=== PATIENT | female | born 1975 | race Caucasian/White ===

== ENCOUNTER 2016-09-01 05:20 | Emergency (ER) | payer OTHER, MEDICAID ==
[~2016-09-01 05:20] MED LIST: NOMED
[2016-09-01 05:23] VITALS: BP 102/70; PULSE 70; RESP 16; O2SAT 97
--- NOTE | 2016-09-01 05:57 | ED.REPORT ---
HPI-Extremity Problem Upper Date of Service Sep 01, 2016 ED Provider: Lili Loo MD A right handed 41 year old female with a history of Degenerative disc disease in back presents to the ED complaining of right hand pain onset a couple of weeks ago. Pain onset with 1st knuckle and spread to 2nd knuckle and into thumb. Patient reports that her noticed that she hit her right hand on the wall above her head while sleeping within the last few weeks, but did not hit it hard enough to wake up. Associated symptoms include swelling in palm of the hand and occasional night time paresthesia. Symptoms are relieved by not using her hand. She has been taking 1600mg ibuprofen per day, 800mg BID since onset, that seems to relieve pain.She visited yesterday. Nursing Notes Stated Complaint: RIGHT HAND PAIN Chief Complaint: Extremity Trauma Nursing Notes Reviewed: Yes Allergies: Coded Allergies: codeine (Verified Allergy, Intermediate, hives, 10/07/15) doxycycline (Verified Allergy, Unknown, Rash, 09/01/16) Miscellaneous Medications No Historical Medication (No Historical Medication) Ea General Time Seen by MD: 05:55 Chief Complaint Hand injury right Hx Obtained From: Patient Arrived By: Walk-in Onset Occurred: More than a week ago... (couple weeks ago) Symptom Duration: Since onset Severity: Current: Moderate Severity: Maximum: Moderate Recent Healthcare: Recent doctor visit (visited yesterday) Similar Sx Previous: No Past Medical History Past Medical History Notes: PCP Dr. 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 Occasional night time paresthesia. Denies Hx arthiris. Reports: Asthma Past Surgical History Right Lung surgery for a nodule in the middle lobe - not cancerous. September 2013. 4 right knee surgeries since 1997. Right 5th digit plate. Reports: Hysterectomy (2002) Smoking History Current Every Day Smoker Social History No doctor appointment scheduled till November. Alcohol Use: Denies alcohol use Drug Use: Vicodin, Percocet Ambulatory Status Independent Review of Systems Review of Systems Note: occasional night time paresthesia. Denies skin lesions Denies dry skin spots Constitutional: Denies: Chills, Fever Musculoskeletal: Reports: Extremity pain (Right hand), Extremity swelling ( Right hand) Skin: Denies Rash Complete sys rev & neg: except as marked. Respiratory: Denies: Non-productive cough Cardiovascular: Denies: Chest pain Physical Exam Initial Vital Signs Vital Signs (First) Date Time Temp Pulse Resp B/P Pulse Ox O2 Delivery O2 Flow Rate FiO2 09/01/16 05:23 37.1 70 16 102/70 97 Room Air Initial VS: Reviewed General/Constitutional: Awake, Alert Respiratory / Chest: Atraumatic, Breath sounds NL, Breath sounds = bilat, No respiratory distress, No rales, No rhonchi, No wheezing Cardiovascular: Heart rate NL, Regular rhythm, Heart sounds NL, No gallop, No murmurs, No rubs Right hand has active synovitis in first and second knuckles, and at base of thumb. Skin: Atraumatic, Color NL, Warm, Dry Neurologic: Oriented X3, Speech NL Head / Eyes: Atraumatic, Normocephalic, PERRL, EOMI Abdomen: No guarding, No rebound Lower Extremity / Pelvis / MS: No swelling, No edema Interpretation & Diagnostics Lab Results Interpretation Result Diagram: 09/01/16 0631 Test 09/01/16 06:31 White Blood Count 5.3th/mm3 (3.8-10.1) Red Blood Count 4.29mil/mm3 (3.90-5.20) Hemoglobin 13.2g/dL (12.0-15.6) Hematocrit 40.0% (35.0-46.0) Mean Corpuscular Volume 93.2fL (81-100) Mean Corpuscular Hemoglobin 30.8pg (27.0-35.0) Mean Corpuscular Hemoglobin Concent 33.0% (32.0-37.0) Red Cell Distribution Width 12.8% (12.3-15.4) Platelet Count 317bil/L (150-400) Neutrophils (%) (Auto) 34.3% (40-74) Lymphocytes (%) (Auto) 54.3% (14-46) Monocytes (%) (Auto) 9.5% (4-12) Eosinophils (%) (Auto) 1.5% (0-5) Basophils (%) (Auto) 0.4% (0-3) Re-Eval/Medical Decision Source of Hx: Old records Re-Evaluation/Progress #1: Patient Status: Condition improved Re-Evaluation/Progress Note: Explained that hand XRay does not show any erosions or fractures. Explained test results and plan for discharge. Patient understands and agrees with the plan. All questions addressed. Re-Evaluation/Progress #2: Time of Eval: 06:33 Patient Status: Condition improved Re-Evaluation/Progress Note: Rechecked patient and applied splint. Counseled Regarding: Diagnosis, Lab results, Need for follow-up, When/why to return to ED Discharge & Departure Impression: Primary Impression: Arthritis of right hand Disposition: Home Discharge Condition All VS Reviewed: Yes Condition: Improved Additional Instructions: Your hand XRay does not show any erosions or fractures. It appears like arthritis. I will give you a splint to ues to protect the joints. Blood results will be sent to Dr. Zuluaga. Call Dr. Zuluaga, and tell her that you need to be seen for your hand. Blood results will be available to Dr. Zuluaga. Please call to schedule a follow up with Dr Zuluaga or one of her partners. The splint is to protect the joint and for comfort only. Please take the splint off periodically to make sure you use your fingers. DO try the spint an night for the next night and see if that helps. Good luck! Referrals: Tomeka Zuluaga MD (PCP) [place]ov[place]on Attestation Portions of this note were transcribed by Mickey Lee. I, Dr. Loo personally performed the history, physical exam and medical decision-making; I reviewed and confirmed the accuracy of the information in the transcribed note. Signed by: Deandre Torres, 09/01/2016, 0707. copies to: Tomeka Zuluaga MD, Shawna L MD Sep 01, 2016 05:57 Mickey Lee Sep 01, 2016 06:05
[2016-09-01 06:47] LABS: BASOPHILS % (AUTO) 0.4 % (0-3); EOSINOPHILS % (AUTO) 1.5 % (0-5); MONOCYTES % (AUTO) 9.5 % (4-12); Mean Corpuscular Hemoglobin 30.8 pg (27.0-35.0); Mean Corpuscular Volume 93.2 fL (81-100); NEUTROPHILS % (AUTO) 34.3 % (40-74); Platelet Count 317 bil/L (150-400)
[2016-09-01 07:03] VITALS: BP 122/64; PULSE 82; RESP 14; O2SAT 97
[2016-09-01 07:07] LABS: ERYTHROCYTE SEDIMENTATION RATE 7 mm/hr (0-32)
--- NOTE | 2016-09-01 09:40 | DRSVH ---
PROCEDURE: X-RAY RIGHT HAND, MINIMUM THREE VIEWS ([id number]) INDICATIONS: POST TRAUMA. TECHNIQUE: Three views of the hand acquired. COMPARISON: [facility], , HAND 3V RIGHT, 07/06/2014, 16:50. FINDINGS: Bones: No fractures or dislocations. No suspicious bony lesions. Patient is status post fifth meta carpal ORIF. Hardware is intact. Soft tissues: No suspicious soft tissue calcifications. IMPRESSION: 1. Stable postsurgical changes and no definite acute radiographic finding. If pain persists, conside r repeat examination in 10-14 days to exclude occult fracture. Dictated by: Casper Montoya RRA Interpreted: Merlyn Jasso MD on 09/01/2016 at 8:53 Transcribed by: LEONILA on 09/01/2016 at 12:39 Approved by: Merlyn Jasso MD, PhD on 09/01/2016 at 16:43
== END 2016-09-01 06:30 | disposition home or self-care (01) ==
LOC: SED 05:20
DX: M19.041 Primary osteoarthritis, right hand (principal); J45.909 Unspecified asthma, uncomplicated; F17.200 Nicotine dependence, unspecified, uncomplicated; W22.8XXA Striking against or struck by other objects, initial encounter; Y93.84 Activity, sleeping; Y92.9 Unspecified place or not applicable; Y99.8 Other external cause status; M51.9 Unspecified thoracic, thoracolumbar and lumbosacral intervertebral disc disorder; Z88.1 Allergy status to other antibiotic agents; Z88.5 Allergy status to narcotic agent

== ENCOUNTER 2016-09-07 11:29 | Emergency (ER) | payer OTHER, MEDICAID ==
[~2016-09-07] VITALS: Ht 165.1 cm; Wt 72.7 kg
[2016-09-07 11:32] VITALS: BP 129/79; PULSE 99; RESP 15; O2SAT 98
[2016-09-07] MEDS ORDERED: predniSONE 20 mg Tablet PO ONE (11:45)
--- NOTE | 2016-09-07 11:47 | ED.REPORT ---
HPI-Back Pain 40 and Over Date of Service Sep 07, 2016 ED Provider: Jason Mojica PA-C Susan is a 41-year-old female with history of degenerative disc disease who presents with lower back pain. She reports severe pain in her lower back and left hip first noticed when she awoke this morning. She states this is not feel like her typical DJD flare. She has sensation that her hip is grinding. Complains of numbness and tingling in her legs. She recognizes no antecedent event. Patient discussed this with her primary care provider who asked her to present to the emergency department. Nursing Notes Stated Complaint: BACK/ LEFT HIP PAIN Chief Complaint: Back Pain or Injury Nursing Notes Reviewed: Yes Allergies: Coded Allergies: codeine (Verified Allergy, Intermediate, hives, 09/07/16) doxycycline (Verified Allergy, Unknown, Rash, 09/07/16) Scheduled Prednisone (PredniSONE) 20 Mg Tablet 40 MG PO DAILY Miscellaneous Medications No Historical Medication (No Historical Medication) Ea General Time Seen by MD: 11:36 Chief Complaint Back pain Sudden in Onset?: No Past Medical History Past Medical History Notes: PCP Dr. 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 Occasional night time paresthesia. Denies Hx arthiris. Reports: Asthma Past Surgical History Right Lung surgery for a nodule in the middle lobe - not cancerous. September 2013. 4 right knee surgeries since 1997. Right 5th digit plate. Reports: Hysterectomy Smoking History Current Every Day Smoker Social History No doctor appointment scheduled till November. Alcohol Use: Denies alcohol use Drug Use: Vicodin, Percocet Ambulatory Status Independent Physical Exam Initial Vital Signs Vital Signs (First) Date Time Temp Pulse Resp B/P Pulse Ox O2 Delivery O2 Flow Rate FiO2 09/07/16 11:32 36.2 99 15 129/79 98 Room Air Interpretation & Diagnostics Lab Results Interpretation Test 09/07/16 12:00 Hold Urine Received (Received) Re-Eval/Medical Decision Med Decision/Clinical Course 41-year-old female with back pain that is without red flag symptoms for acute disc herniation, cauda equina, infection, hematoma, trauma, pyelonephritis, nephrolithiasis, AAA, cancer. I believe this is musculoskeletal back pain. She describes hip pain with a sensation of crepitus. Little concern for acute trauma or septic joint. Discussed her case with her primary care provider, who feels that arthritis is a possibility. She advises the patient to continue her usual pain contract medication, prednisone burst, rest for the weekend and follow up early next week if necessary. I discussed this with the patient who verbalizes understanding of and consent to the plan. Provided emergency return precautions. Consultation : Referral / Consult Name: Tomeka Zuluaga MD Consulted With: Primary care physician Call Returned at: 14:10 Note: Stress the case with Dr. Zuluaga. She advises continuing use of her current pain medications up to maximum doses, rest through the weekend. Follow up next week if necessary. Discharge & Departure Impression: Primary Impression: Low back pain Chronicity: acute Back pain laterality: left Sciatica presence: without sciatica Qualified Code: M54.5 - Low back pain Disposition: Home Discharge Condition All VS Reviewed: Yes Condition: Stable Patient Instructions: Acute Low Back Pain (ED) Additional Instructions: Evaluation in the emergency department for lower back pain. History and physical are reassuring for emergent neurological condition such as epidural abscess or cauda equina syndrome. History does not suggest that this is likely to be a spinal fracture. Your neurological examination is reassuring, indicating there is no damage to the nerves in your back. I see no indication to perform imaging tests at this time. Treatment is largely symptomatic. Rest is important, especially for the next couple of days, but avoid total bed rest. Reasonable activity as tolerated is the best. Primary care provider recommends continuing use of your usual pain medications. you can take 1-2 of either your hydrocodone-acetaminophen or oxycodone- acetaminophen every 4-6 hours as needed for pain I will write a prescription for prednisone 40 mg to be taken once a day for the next 4 days. You received your first dose here in the emergency department. Follow-up with your primary care provider in the next week or two to be sure your recovery is progressing as expected. Return the emergency department for new or worsening symptoms such as loss of bowel/bladder control, numbness between your legs, new weakness/numbness or high fever. Referrals: Tomeka Zuluaga MD (PCP) EDSupervising Provider for APC: Justin Yeh MD Attending Statement Case was discussed. Records reviewed. Vitaals normal. copies to: Tomeka Zuluaga MD, Seth PA-C Sep 07, 2016 11:47 Justin Yeh MD Sep 07, 2016 13:45
[2016-09-07] MEDS ORDERED: PRE20 PO (14:28)
[2016-09-07 14:55] VITALS: BP 140/79; PULSE 76; RESP 15; O2SAT 94
== END 2016-09-07 14:56 | disposition home or self-care (01) ==
LOC: SED 11:29
DX: M54.5 Low back pain (principal); R20.2 Paresthesia of skin; J45.909 Unspecified asthma, uncomplicated; M51.35 Other intervertebral disc degeneration, thoracolumbar region; F17.200 Nicotine dependence, unspecified, uncomplicated; Z88.5 Allergy status to narcotic agent; Z88.1 Allergy status to other antibiotic agents
CPT/HCPCS: 81025; 96372; 99284; J1885

== ENCOUNTER 2017-01-14 19:40 | Emergency (ER) | payer OTHER, MEDICAID ==
[~2017-01-14] VITALS: Ht 165.1 cm; Wt 68.2 kg
[~2017-01-14 19:40] MED LIST changes: +PRE20 PO
[2017-01-14 19:58] VITALS: BP 101/66; PULSE 76; RESP 16; O2SAT 96
--- NOTE | 2017-01-14 20:04 | ED.REPORT ---
HPI-Dyspnea / Wheezing Date of Service Jan 14, 2017 ED Provider: Herman Mcgarry DO Pt is a 31 year old female with a history of asthma and lung surgery who presents to the ED complaining of worsening sharp back pain onset 3 weeks ago. She c/o associated pleuritic pain and nausea. She denies rash, shingles, and any other symptoms. Pt reports that her pain is exacerbated with breathing. She states that her current pain is similar to when she previously had a nodule in the middle lobe of her right lung. Per pt, her pain does not hurt where her surgical scar is. The pt is currently on hormones, but she denies taking control. Nursing Notes Stated Complaint: BACK PAIN, PAINFUL BREATHING Chief Complaint: Respiratory Complaints Nursing Notes Reviewed: Yes Allergies: Coded Allergies: codeine (Verified Allergy, Intermediate, hives, 09/07/16) doxycycline (Verified Allergy, Unknown, Rash, 09/07/16) Scheduled Prednisone (PredniSONE) 20 Mg Tablet 40 MG PO DAILY Miscellaneous Medications No Historical Medication (No Historical Medication) Ea General Time Seen by MD: 20:04 Chief Complaint Other (back pain) Hx Obtained From: Patient Arrived By: Walk-in Sudden in Onset?: No Symptom Duration: Since onset Location: : Back Quality: Painful Radiation: : Does not radiate Severity: Current: Moderate Severity: Maximum: Moderate Recent Healthcare: No recent doctor visit, No recent hospitalization Similar Sx Previous: Yes Past Medical History Past Medical History Notes: PCP Dr. 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 Occasional night time paresthesia. Denies Hx arthiris. Reports: Asthma Past Surgical History Right Lung surgery for a nodule in the middle lobe - not cancerous. September 2013. 4 right knee surgeries since 1997. Right 5th digit plate. Reports: Hysterectomy Smoking History Current Every Day Smoker Social History No doctor appointment scheduled till November. Alcohol Use: Denies alcohol use Drug Use: Vicodin, Percocet Other Social History: Good social support Ambulatory Status Independent Review of Systems + pleuritic pain Cardiovascular: Reports: Dyspnea on exertion Musculoskeletal: Reports: Back pain Skin: Denies Rash Complete sys rev & neg: except as marked. GI: Reports: Nausea Physical Exam Initial Vital Signs Vital Signs (First) Date Time Temp Pulse Resp B/P Pulse Ox O2 Delivery O2 Flow Rate FiO2 01/14/17 19:58 37.6 76 16 101/66 96 Room Air Initial VS: Reviewed Head / Eyes: Atraumatic, Normocephalic Abdomen / GI: Soft, Non-tender Extremities: Vascular intact, Neuro intact Skin: Warm, Dry, No cyanosis Neurologic: Alert, Oriented, Nonfocal Psychiatric: Mood/affect normal, Behavior normal General/Constitutional: Awake, Alert Neck: Atraumatic, Full range of motion Respiratory / Chest: Atraumatic, Breath sounds NL, Breath sounds = bilat Cardiovascular: Heart rate NL, Regular rhythm, Heart sounds NL Interpretation & Diagnostics ANGIOGRAPHY CT: IMPRESSION: 1. No evidence of pulmonary embolism. 2. Moderate to severe centrilobular emphysematous changes in the lungs. 3. Mildly enlarged mediastinal lymph nodes are nonspecific and may be reactive. Recommend attention on followup 4. Small right lower lobe pulmonary nodules measuring up to 3 mm. If clinically indicated, a followup CT may be performed in 6 months to demonstrate stability or resolution. 5. Mild reflux of contrast into the hepatic veins suggesting elevated right heart filling pressures. Dictated by: Josue Brown M.D. on 01/14/2017 at 21:41 Lab Results Interpretation Result Diagram: 01/14/17203001/14/172030 Test 01/14/17 20:31 White Blood Count 7.6th/mm3 (3.8-10.1) Red Blood Count 4.53mil/mm3 (3.90-5.20) Hemoglobin 13.7g/dL (12.0-15.6) Hematocrit 41.1% (35.0-46.0) Mean Corpuscular Volume 90.7fL (81-100) Mean Corpuscular Hemoglobin 30.2pg (27.0-35.0) Mean Corpuscular Hemoglobin Concent 33.3% (32.0-37.0) Red Cell Distribution Width 13.6% (12.3-15.4) Platelet Count 337bil/L (150-400) Neutrophils (%) (Auto) 38.1% (40-74) Lymphocytes (%) (Auto) 49.4% (14-46) Monocytes (%) (Auto) 10.1% (4-12) Eosinophils (%) (Auto) 2.1% (0-5) Basophils (%) (Auto) 0.3% (0-3) Sodium Level 140mEq/L (134-144) Potassium Level 3.9mEq/L (3.5-5.2) Chloride Level 105mEq/L (97-108) Carbon Dioxide Level 19mmol/L (18-29) Blood Urea Nitrogen 11mg/dL (6-24) Creatinine 0.65mg/dL (0.57-1.00) Estimat Glomerular Filtration Rate 144mL/min (>59) Glucose Level 106mg/dL (60-99) Calcium Level 9.0mg/dL (8.5-10.1) Magnesium Level 2.1mg/dL (1.6-2.6) Total Bilirubin 0.2mg/dL (0.0-1.2) Aspartate Amino Transf (AST/SGOT) 13U/L (0-50) Alanine Aminotransferase (ALT/SGPT) 7U/L (0-32) Alkaline Phosphatase 69U/L (25-150) Troponin T 0.010ug/L (0.0-0.011) Total Protein 7.1g/dL (6.4-8.4) Albumin 4.1g/dL (3.4-5.0) Hold Gavin Top Tube Received (Received) ECG Interpretation ECG Interpretation: Sinus rhythm with a rate of 69 Lack of marked abnormality Time: 20:46 Interpreted by: ED physician Normal ECG Interpretation: Normal ECG w/ rate of... X-Ray Chest Interpretation Chest Xray Interpretation: IMPRESSION: 1. No acute cardiopulmonary disease. Dictated by: Josue Brown M.D. on 01/14/2017 at 20:44 View: AP & lat Interpretation / Wet Read by: Interpret - Radiologist Re-Eval/Medical Decision Source of Hx: Old records Re-Evaluation/Progress : Time of Eval: 22:24 Re-Evaluation/Progress Note: Pt rechecked. Informed pt of plan for discharge. Pt understands and agrees with plan for discharge. F/U instructions and RTER warnings given. All questions addressed. Counseled Regarding: Diagnosis, Lab results, Need for follow-up, When/why to return to ED Discharge & Departure Impression: Primary Impression: Pleuritic chest pain Additional Impression: Emphysema of lung Emphysema type: centrilobular Qualified Code: J43.2 - Centrilobular emphysema Disposition: Home Discharge Condition All VS Reviewed: Yes Condition: Stable Patient Instructions: Chest Pain (ED), Emphysema (ED) Additional Instructions: Your EKG and cardiac enzymes were normal. The laboratory work is reassuring. The CAT scan of the chest does not show a blood clot or signs of pneumonia. You do have severe emphysema. You do have some enlarged lymph nodes which may be reactive. You also have a couple new right-sided pulmonary nodules that should have follow-up imaging. For the pain I would like you to take Naprosyn twice daily. For breakthrough pain you may take 1-2 Percocet every [address] or drink alcohol or consume acetaminophen while taking the Percocet. If you develop a fever, cough with sputum or any worsening symptoms such as symptoms of bronchitis, return to the Emergency department. Completed the Z-Cordell as prescribed. Set up a follow-up with you primary care physician next week. Return if any problems or any worsening symptoms. Referrals: Tomeka Zuluaga MD (PCP) Deandre Attestation Portions of this note were transcribed by Mini Manuel. I, Dr. Mcgarry personally performed the history, physical exam and medical decision-making; I reviewed and confirmed the accuracy of the information in the transcribed note. Signed by : Deandre Burns, 01/14/17. copies to: Tomeka Zuluaga MD, Todd P DO Jan 14, 2017 20:04 Mini Nolan Jan 14, 2017 20:43
[2017-01-14 20:39] LABS: BASOPHILS % (AUTO) 0.3 % (0-3); EOSINOPHILS % (AUTO) 2.1 % (0-5); MONOCYTES % (AUTO) 10.1 % (4-12); Mean Corpuscular Hemoglobin 30.2 pg (27.0-35.0); Mean Corpuscular Volume 90.7 fL (81-100); NEUTROPHILS % (AUTO) 38.1 % (40-74); Platelet Count 337 bil/L (150-400)
--- NOTE | 2017-01-14 20:46 | DRSVH ---
PROCEDURE: X-RAY CHEST, TWO VIEWS ([id number]) INDICATIONS: CP, back pain TECHNIQUE: 2 views of the chest were acquired. COMPARISON: None. FINDINGS: Surgical changes and devices: None. Lungs and pleura: No pleural effusions or pneumothorax. Lungs are clear. Mediastinum: Mediastinal contours are normal. Heart size is normal. Bones and chest wall: No suspicious bony abnormalities. Soft tissues appear unremarkable. IMPRESSION: 1. No acute cardiopulmonary disease. Dictated by: Josue Brown M.D. on 01/14/2017 at 20:44 Approved by: Josue Brown M.D. on 01/14/2017 at 20:44
[2017-01-14] MEDS ORDERED: HYDROmorphone 0.5 mg/0.5 mL iSecure Syringe IVPUSH PRN (20:50)
[2017-01-14 20:58] LABS: TROPONIN T 0.01 ug/L (0.0-0.011)
[2017-01-14 21:08] LABS: Magnesium 2.1 mg/dL (1.6-2.6)
--- NOTE | 2017-01-14 21:52 | DRSVH ---
PROCEDURE: CT ANGIO CHEST PULMONARY EMBOLISM ([id number]) INDICATIONS: cp and shortness of breath TECHNIQUE: After the administration of intravenous contrast, 2 mm thick sections acquired from the pulmonary api juanis to the posterior costophrenic angles. 3-dimensional maximum intensity projection (MIP) coronal a nd sagittal reformats were then acquired through the thorax. For radiation dose reduction, the follo wing was used: automated exposure control, adjustment of mA and/or kV according to patient size. COMPARISON: None. FINDINGS: Image quality: Excellent. Pulmonary arteries: Pulmonary arteries are normal in size, and demonstrate no intraluminal filling d efects to suggest central pulmonary embolism. Lungs and pleura: There are moderate severe centrilobular emphysematous changes. 3 small pulmonary nodules are demonstrated within the right lower lobe measuring up to approximately 3 mm. No pleural effusions or pneumothorax. Central and peripheral airways are patent. Mediastinum: Heart size is normal, without pericardial effusion. Thoracic aorta is normal in calibe r and enhancement. There are a few mildly enlarged mediastinal and right hilar lymph nodes with an A P window node measuring up to 1.2 cm in short axis. Esophagus is normal in caliber, without hiatal he rnia. Bones and chest wall: No suspicious bony lesions. Ribs and thoracic spine appear intact throughout. No axillary or supraclavicular adenopathy. Abdomen: Visualized upper abdomen demonstrates reflux of contrast into the hepatic veins suggesting mild elevated right heart pressures. There is a rounded calcification within the visualized spleen w hich may represent a calcified granuloma. IMPRESSION: 1. No evidence of pulmonary embolism. 2. Moderate to severe centrilobular emphysematous changes in the lungs. 3. Mildly enlarged mediastinal lymph nodes are nonspecific and may be reactive. Recommend attention on followup 4. Small right lower lobe pulmonary nodules measuring up to 3 mm. If clinically indicated, a follow up CT may be performed in 6 months to demonstrate stability or resolution. 5. Mild reflux of contrast into the hepatic veins suggesting elevated right heart filling pressures. Dictated by: Josue Brown M.D. on 01/14/2017 at 21:41 Approved by: Josue Brown M.D. on 01/14/2017 at 21:50
[2017-01-14 23:29] VITALS: BP 98/69; PULSE 60; RESP 22; O2SAT 99
== END 2017-01-14 23:30 | disposition home or self-care (01) ==
LOC: SED 19:40
DX: R07.81 Pleurodynia (principal); J43.2 Centrilobular emphysema; J45.909 Unspecified asthma, uncomplicated; F17.200 Nicotine dependence, unspecified, uncomplicated; Z88.5 Allergy status to narcotic agent; Z88.1 Allergy status to other antibiotic agents
CPT/HCPCS: 36415; 71020; 71275; 80053; 83735; 84484; 85025; 93005; 96374; 96375; 99285; J1170; J1885; Q9967

== ENCOUNTER 2017-01-20 16:10 | Emergency (ER) | payer OTHER, MEDICAID ==
[~2017-01-20] VITALS: Ht 165.1 cm; Wt 150.0 kg
[2017-01-20 16:22] VITALS: BP 131/85; PULSE 66; RESP 20; O2SAT 99
[2017-01-20 17:16] LABS: BASOPHILS % (AUTO) 0.4 % (0-3); EOSINOPHILS % (AUTO) 1.1 % (0-5); MONOCYTES % (AUTO) 6.9 % (4-12); Mean Corpuscular Hemoglobin 30.8 pg (27.0-35.0); Mean Corpuscular Volume 90.2 fL (81-100); NEUTROPHILS % (AUTO) 55.8 % (40-74); Platelet Count 377 bil/L (150-400)
--- NOTE | 2017-01-20 17:28 | DRSVH ---
PROCEDURE: X-RAY CHEST ONE VIEW, PORTABLE ([id number]) INDICATIONS: 41 year-old female with shortness of breath. TECHNIQUE: One view of the chest was acquired. COMPARISON: [facility], CR, XR CHEST 2VW, 01/14/2017, 20:29. [facility], CR , XR CHEST 2VW, 01/31/2016, 14:38. [facility], CR, CHEST 1VW (PORTABLE), 10/06/2014, 0:20 . FINDINGS: Surgical changes and devices: Right lower lung staple line is again noted. Lungs and pleura: No pleural effusions or pneumothorax. Lungs are clear. Mediastinum: Mediastinal contours appear normal. Heart size is normal. Bones and chest wall: No suspicious bony lesions. Overlying soft tissues appear unremarkable. IMPRESSION: No acute cardiopulmonary disease. Dictated by: Juan Pablo Neville M.D. on 01/20/2017 at 17:25 Approved by: Juan Pablo Neville M.D. on 01/20/2017 at 17:26
[2017-01-20 17:52] VITALS: BP 115/75; PULSE 72; RESP 14; O2SAT 98
[2017-01-20 18:07] LABS: TROPONIN T < 0.010 ug/L (0.0-0.011)
--- NOTE | 2017-01-20 18:08 | ED.REPORT ---
HPI-General Illness Date of Service Jan 20, 2017 ED Provider: Lenny Enciso DO Pt is a 41 year old female with a history of emphysema and a pulmonary nodule s/ p surgery who presents to the ED complaining of stabbing and worsening upper back pain onset 4 weeks ago that has worsened over the past week since being seen in the ER here. She c/o worsened pain with deep breathing and insomnia secondary to the pain. She denies SOB, lower extremity swelling, chest pain, and abdominal pain. Pt rates her pain as a 9/10 at its worst, but she states her pain is currently a 6/10. She denies a history of blood clots in her lung. The pt is a current smoker. She has a follow up appointment with her PCP on 01/22, and also her medical social worker. The pain is at the midline of her back near the bra line and radiates out to both sides. There has been no skin rashes noted. She presented to the ED on 01/14/17 with similar symptoms and had a CT scan demonstrating no pulmonary embolus, mildly enlarged mediastinal lymph nodes of undetermined significance, and small right lower lobe pulmonary nodules measuring up to 3 mm. She was diagnosed with pleuritic chest pain and emphysema of lung and discharged with a plan for follow-up. The pt was provided Z-pack, Percocet, and naproxen for her pain with minimal relief. She took the entire dose of the Z-Cordell, last dose was one day ago. This did not help her pain Nursing Notes Stated Complaint: LUNG AND BACK PAIN, HARD TO BREATH Chief Complaint: Respiratory Complaints Nursing Notes Reviewed: Yes Allergies: Coded Allergies: codeine (Verified Allergy, Intermediate, hives, 09/07/16) doxycycline (Verified Allergy, Unknown, Rash, 09/07/16) Scheduled Prednisone (PredniSONE) 20 Mg Tablet 40 MG PO DAILY Scheduled PRN Diclofenac Potassium (Diclofenac Potassium) 50 Mg Tablet 50 MG PO TID PRN PRN For Pain Miscellaneous Medications No Historical Medication (No Historical Medication) Ea General Time Seen by MD: 18:03 Chief Complaint Back pain Hx Obtained From: Patient Arrived By: Walk-in Sudden in Onset?: No Onset Occurred: 1 week ago Symptom Duration: Since onset Location: : Back Quality: Painful Radiation: : Does not radiate Severity: Current: Moderate Severity: Maximum: Moderate Recent Healthcare: Recent doctor visit Similar Sx Previous: Yes Past Medical History Past Medical History Notes: PCP Dr. 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 Occasional night time paresthesia. Denies Hx arthiris. Reports: Asthma Past Surgical History Right Lung surgery for a nodule in the middle lobe - not cancerous. September 2013. 4 right knee surgeries since 1997. Right 5th digit plate. Reports: Hysterectomy Smoking History Current Every Day Smoker Social History Alcohol Use: Denies alcohol use Drug Use: Vicodin, Percocet Other Social History: Good social support Ambulatory Status Independent Review of Systems Full Review of Systems Respiratory: Denies: Shortness of breath Cardiovascular: Denies: Chest pain GI: Denies: Abdominal pain Musculoskeletal: Reports: Back pain, Denies: Extremity swelling Complete sys rev & neg: except as marked. Physical Exam Vital Signs Vital Signs Date Time Temp Pulse Resp B/P Pulse Ox O2 Delivery O2 Flow Rate FiO2 01/20/17 20:54 36.7 68 17 107/73 93 Room Air 01/20/17 20:35 68 17 97/57 93 Room Air 01/20/17 19:00 72 21 107/82 97 Room Air 01/20/17 17:52 72 14 115/75 98 Room Air 01/20/17 16:22 36.7 66 20 131/85 99 Room Air Initial VS: Reviewed Head / Eyes: Atraumatic, Normocephalic Neck: Supple, Full range of motion Abdomen / GI: Soft, Non-tender Extremities: Vascular intact, Neuro intact Skin: Warm, Dry, No cyanosis Neurologic: Alert, Oriented, Nonfocal Psychiatric: Mood/affect normal, Behavior normal General/Constitutional: Awake, Alert RESPIRATORY: No increased work of breathing. Bibasilar inspiratory rales. Cardiovascular: Heart rate NL, Regular rhythm, Heart sounds NL, No murmurs Back: Full range of motion No CVA tenderness to percussion. Skin: No rash, Warm, Dry No abnormalities seen. No bruising. Interpretation & Diagnostics Lab Results Interpretation Result Diagram: 01/20/17 1700 01/20/17 1700 Test 01/20/17 17:00 01/20/17 18:00 White Blood Count 8.4th/mm3 (3.8-10.1) Red Blood Count 4.68mil/mm3 (3.90-5.20) Hemoglobin 14.4g/dL (12.0-15.6) Hematocrit 42.2% (35.0-46.0) Mean Corpuscular Volume 90.2fL (81-100) Mean Corpuscular Hemoglobin 30.8pg (27.0-35.0) Mean Corpuscular Hemoglobin Concent 34.1% (32.0-37.0) Red Cell Distribution Width 13.4% (12.3-15.4) Platelet Count 377bil/L (150-400) Neutrophils (%) (Auto) 55.8% (40-74) Lymphocytes (%) (Auto) 35.8% (14-46) Monocytes (%) (Auto) 6.9% (4-12) Eosinophils (%) (Auto) 1.1% (0-5) Basophils (%) (Auto) 0.4% (0-3) Sodium Level 139mEq/L (134-144) Potassium Level 3.7mEq/L (3.5-5.2) Chloride Level 102mEq/L (97-108) Carbon Dioxide Level 21mmol/L (18-29) Blood Urea Nitrogen 9mg/dL (6-24) Creatinine 0.72mg/dL (0.57-1.00) Estimat Glomerular Filtration Rate 128mL/min (>59) Glucose Level 90mg/dL (60-99) Calcium Level 9.4mg/dL (8.5-10.1) Total Bilirubin 0.5mg/dL (0.0-1.2) Aspartate Amino Transf (AST/SGOT) 16U/L (0-50) Alanine Aminotransferase (ALT/SGPT) 9U/L (0-32) Alkaline Phosphatase 65U/L (25-150) Troponin T < 0.010ug/L (0.0-0.011) Pro-B-Type Natriuretic Peptide 247.6pg/mL (0-130) Total Protein 7.4g/dL (6.4-8.4) Albumin 4.3g/dL (3.4-5.0) Hold Gavin Top Tube Received (Received) Urine Color Straw (YELLOW) Urine Appearance Clear (CLEAR,HAZY) Urine pH 6.0 (5.0-8.0) Urine Specific [place] 1.010 (1.003-1.035) Urine Protein Negativemg/dL (NEG,TRACE) Urine Glucose (UA) Negativemg/dL (NEGATIVE) Urine Ketones Negativemg/dL (NEGATIVE) Urine Occult Blood Trace (NEGATIVE) Urine Nitrite Negative (NEGATIVE) Urine Bilirubin Negative (NEGATIVE) Urine Urobilinogen Normalmg/dL (NORMAL) Urine Leukocyte Esterase Negative (NEGATIVE) Urine RBC 0-2/hpf (0-2) Urine WBC 0-5/hpf (0-5) Urine Epithelial Cells None/hpf (NONE-MOD) Urine Crystals None seen (NONE SEEN) Urine Bacteria Few/hpf (NONE-FEW) Urine Hyaline Casts None/lpf (NONE) Urine Granular Casts None seen (NONE SEEN) Urine Waxy Casts None seen (NONE SEEN) Urine Red Blood Cell Casts None seen (NONE SEEN) Urine White Blood Cell Casts None seen (NONE SEEN) Urine Mucus None seen (None Seen) Urine Trichomonas None seen (NONE SEEN) Urine Yeast None (NONE SEEN) Urinalysis Comment None Urine Culture Reflexed Not indicated ECG Interpretation ECG Interpretation: Sinus rhythm with a rate of 63 Probable left atrial enlargement Time: 16:57 Interpreted by: ED physician X-Ray Chest Interpretation Chest Xray Interpretation: IMPRESSION: No acute cardiopulmonary disease. Dictated by: Juan Pablo Neville M.D. on 01/20/2017 at 17:25 View: Portable, 1 view Interpretation / Wet Read by: Interpret - Radiologist Re-Eval/Medical Decision Med Decision/Clinical Course I had a long discussion with the patient regarding her current symptoms and our role for further testing today. With the negative CT for pulmonary embolus one week ago and ongoing pain for 1 month I do not think a pulmonary embolus is likely and a scan is not necessary today. The enlarged lymph nodes and pulmonary nodules are not likely source of pain. There is no spinal pathology noted in the recent CT scan. There is no evidence of shingles, and her pain is bilateral. Her lab work does not indicate infectious etiology, her chest x-ray does not show pneumonia, and she just finished a full course of azithromycin. I suspect she has pleurisy. I gave her a stronger anti-inflammatory, diclofenac and also a small amount of Percocet for breakthrough pain. She has follow-up scheduled with her medical social worker and PCP within the week. Source of Hx: Old records Time of Eval: 19:29 Re-Evaluation/Progress Note: Pt rechecked. Informed pt of results. Pt complained of persistent pain. All questions addressed. Time of Eval: 19:57 Re-Evaluation/Progress Note: Pt rechecked. Informed pt of lab/x-ray results and plan for discharge. Pt understands and agrees with plan for discharge. F/U instructions and RTER warnings given. All questions addressed. Counseled Regarding: Diagnosis, Lab results, Need for follow-up, When/why to return to ED Discharge & Departure Primary Impression: Pleurisy Additional Impression: Pleuritic chest pain Disposition: Home Discharge Condition All VS Reviewed: Yes Condition: Stable Patient Instructions: Pleurisy (ED) Additional Instructions: Thank you for entrusting us with your care today. Your labs and x-ray today were reassuring. You do not have pneumonia or a collapsed lung. I reviewed your CT from 6 days ago and I do not think you need a new CT with similar pain, although worsening over the past month. There was no evidence of blood clot in your lung, spinal pathology, or other serious findings although there was some enlarged lymph nodes and new lung nodules. These things should not be causing the pain you are having. You are just treated with a very good antibiotic so I see no role for further antibiotics today, with no infectious markers on your workup Keep your follow up appointments with your primary care and your medical social worker next week. Use diclofenac as needed for pain and Percocet as needed for breakthrough pain. Return to the Emergency Department for any new or concerning symptoms. Referrals: Tomeka Zuluaga MD (PCP) Deandre Attestation Portions of this note were transcribed by Mini Manuel. I, Dr. Enciso personally performed the history, physical exam and medical decision-making; I reviewed and confirmed the accuracy of the information in the transcribed note. Signed by: Deandre Burns, 01/20/17. copies to: Tomeka Zuluaga MD, Gary R DO Jan 20, 2017 18:08 Mini Nolan Jan 20, 2017 18:30
[2017-01-20 18:17] LABS: APPEARANCE,URINE CLEAR (CLEAR,HAZY); COLOR,URINE STRAW (YELLOW)
[2017-01-20 18:18] LABS: OCCULT BLOOD,URINE TRACE (NEGATIVE); UROBILINOGEN,URINE NORMAL (NORMAL)
[2017-01-20 19:00] VITALS: BP 107/82; PULSE 72; RESP 21; O2SAT 97
[2017-01-20] MEDS ORDERED: HYDROmorphone 0.5 mg/0.5 mL iSecure Syringe IVPUSH ONE (19:15)
[2017-01-20] MEDS ORDERED: _oxyCODONE/APAP 5-325 mg Tablet PO PRN (20:15)
[2017-01-20 20:35] VITALS: BP 97/57; PULSE 68; RESP 17; O2SAT 93
[2017-01-20] MEDS ORDERED: DICL50TA5 PO (20:35)
[2017-01-20 20:54] VITALS: BP 107/73; PULSE 68; RESP 17; O2SAT 93
== END 2017-01-20 20:55 | disposition home or self-care (01) ==
LOC: SED 16:10
DX: R09.1 Pleurisy (principal); R07.81 Pleurodynia; G47.00 Insomnia, unspecified; J45.909 Unspecified asthma, uncomplicated; F17.200 Nicotine dependence, unspecified, uncomplicated; Z87.09 Personal history of other diseases of the respiratory system; Z98.890 Other specified postprocedural states; Z90.710 Acquired absence of both cervix and uterus; Z88.1 Allergy status to other antibiotic agents; Z88.5 Allergy status to narcotic agent
CPT/HCPCS: 36415; 71010; 80053; 81000; 83880; 84484; 85025; 93005; 96374; 96375; 99285; J1170; J2270